=== PATIENT | male | born 1985 | race Caucasian/White ===

== ENCOUNTER 2017-07-31 22:30 | Inpatient (IN) | payer BC ==
[2017-08-01] MEDS ORDERED: Metoclopramide IV* 5 MG/ML 2 ML VIAL IV ONE ×2 (00:12→01:00)
[2017-08-01] MEDS ORDERED: NS 0.9% 1000 ML* 1,000 ML IV ONE (00:12)
[2017-08-01 00:49] LABS: ABS Basophils 0 10^3/ul (0-0.2); ABS Eosinophils 0 10^3/ul (0-0.6); ABS Lymphocytes 0.8 10^3/ul (1.0-4.8); ABS Monocytes 0.9 10^3/ul (0-0.8); ABS Neutrophils 7.9 10^3/ul (1.5-7.7); ABS Nucleated RBC 0 10^3/ul; Eosinophil % 0.1 % (0-6); Hematocrit 45 % (42-52); Hemoglobin 15.6 g/dl (14.0-18.0); Lymphocyte % 7.9 % (25-47); Mean Corpuscular HGB Conc 35 g/dl (31-36); Mean Corpuscular Hemoglobin 28 pg (27-31); Mean Corpuscular Volume 80 fL (80-94); Mean Platelet Volume 8 um3 (7.4-10.4); Nucleated Red Blood Cells % 0.1; Platelet Count 185 10^3/ul (150-450); Red Blood Count 5.59 10^6/ul (4.0-5.4); Red Cell Distribution Width 15 % (10.5-15); White Blood Count 9.6 10^3/ul (3.5-10.8)
[2017-08-01] MEDS: HYDROmorphone INJ* 2 MG/ML CARPUJECT SYRINGE IV SLOW PU PRN ×2 (00:52→04:16)
[2017-08-01 01:01] LABS: EGFR Non-African American 107.4 (>60)
[2017-08-01] MEDS ORDERED: Iohexol 300* (CONTRAST) 10 ML SDV IV ONE (01:35)
[2017-08-01] MEDS ORDERED: Ondansetron INJ* 2 MG/ML VIAL IV PRN (03:29)
[2017-08-01] MEDS ORDERED: Acetaminophen SUPP* 650 MG SUPP PR PRN (03:29)
[2017-08-01] MEDS ORDERED: HYDROmorphone INJ* 2 MG/ML CARPUJECT SYRINGE IV PRN (03:29)
--- NOTE | 2017-08-01 03:54 | ED ---
Jonathan Erickson Nikita, scribed Ida Romero MD on 08/01/17 at 0013 . Abdominal Pain/Male - HPI Summary HPI Summary: This patient is a 31 year old M presenting to ED with a chief complaint of abdominal pain since 2 days ago. The CC is described as aching. The patient rates the pain 7/10 in severity. Symptoms aggravated by nothing. Symptoms alleviated by nothing. Patient reports N/V. Patient denies fever and diarrhea. - History of Current Complaint Chief Complaint: EDAbdPain Stated Complaint: VOMITING Time Seen by Provider: 08/01/17 00:00 Hx Obtained From: Patient Onset/Duration: Sudden Onset, Lasting Days, Still Present Timing: Constant, Lasting Days Severity Initially: Moderate Severity Currently: Moderate Pain Intensity: 8 Pain Scale Used: 0-10 Numeric Radiates: No Character: Other: - aching Aggravating Factor(s): Nothing Alleviating Factor(s): Nothing Associated Signs And Symptoms: Positive: Other - Patient reports N/V. Patient denies fever and diarrhea. - Allergies/Home Medications Allergies/Adverse Reactions: Allergies Allergy/AdvReac Type Severity Reaction Status Date / Time Penicillins Allergy Intermediate Hives Verified 07/31/17 22:42 PMH/Surg Hx/FS Hx/Imm Hx Endocrine/Hematology History: Denies: Hx Diabetes, Hx Thyroid Disease Cardiovascular History: Denies: Hx Hypertension Respiratory History: Denies: Hx Asthma, Hx Chronic Obstructive Pulmonary Disease (COPD) GI History: Denies: Hx Ulcer Infectious Disease History: No Infectious Disease History: Denies: Hx Hepatitis, Hx Human Immunodeficiency Virus (HIV), Traveled Outside the [place] in Last 30 Days - Family History Known Family History: Positive: Diabetes Family History: R & n/C - Social History Alcohol Use: Weekly Hx Substance Use: No Substance Use Type: Reports: None Hx Tobacco Use: No Smoking Status (MU): Never Smoked Tobacco Review of Systems Negative: Fever Positive: Abdominal Pain, Vomiting, Nausea. Negative: Diarrhea All Other Systems Reviewed And Are Negative: Yes Physical Exam - Summary Physical Exam Summary: VITAL SIGNS: Reviewed. GENERAL: ~Patient is a well-developed and nourished MALE who is lying comfortable in the stretcher. Patient is not in any acute respiratory distress. HEAD AND FACE: No signs of trauma. No ecchymosis, hematomas or skull depressions. No sinus tenderness. EYES: PERRLA, EOMI x 2, No injected conjunctiva, no nystagmus. EARS: Hearing grossly intact. Ear canals and tympanic membranes are within normal limits. MOUTH: Oropharynx within normal limits. NECK: Supple, trachea is midline, no adenopathy, no JVD, no carotid bruit, no c- spine tenderness, neck with full ROM. CHEST: Symmetric, no tenderness at palpation LUNGS: Clear to auscultation bilaterally. No wheezing or crackles. CVS: Regular rate and rhythm, S1 and S2 present, no murmurs or gallops appreciated. ABDOMEN: Soft, LUQ tenderness. No signs of distention. No rebound no guarding, and no masses palpated. Hypoactive bowel sounds. EXTREMITIES: FROM in all major joints, no edema, no cyanosis or clubbing. NEURO: Alert and oriented x 3. No acute neurological deficits. Speech is normal and follows commands. SKIN: Dry and warm Triage Information Reviewed: Yes Vital Signs On Initial Exam: Initial Vitals Temp Pulse Resp BP Pulse Ox 98.2 F 81 18 149/83 98 07/31/17 22:39 07/31/17 22:39 07/31/17 22:39 07/31/17 22:39 07/31/17 22:39 Vital Signs Reviewed: Yes - [place] Coma Scale Coma Scale Total: 15 Diagnostics - Vital Signs Vital Signs Temp Pulse Resp BP Pulse Ox 08/01/17 00:08 82 97 08/01/17 00:05 155/80 07/31/17 22:39 98.2 F 81 18 149/83 98 - Laboratory Result Diagrams: 08/01/17 00:38 08/01/17 00:38 Lab Statement: Any lab studies that have been ordered have been reviewed, and results considered in the medical decision making process. - CT abd/pel CT Interpretation Completed By: Radiologist - Moderately dilated small bowel left upper and left lower quadrants with decompressed distal small bowel, probably partial or early small bowel obstruction. No colitis or free air. Normal appendix. Unremarkable pancreas, kidneys and gallbladder. Hepatosplenomegaly. Small ascites. ED physician has reviewed this radiology report. Abdominal Pain Fem Course/Dx - Course Assessment/Plan: This patient is a 31 year old M presenting to ED with a chief complaint of abdominal pain since [address] abd/pel reveals moderately dilated small bowel left upper and left lower quadrants with decompressed distal small bowel, probably partial or early small bowel obstruction. No colitis or free air. Normal appendix. Unremarkable pancreas, kidneys and gallbladder. Hepatosplenomegaly. Small ascites. Discussed about pt with Dr. Perez at 0326 who accepts pt for admission. Pt will be admitted. Pt is agreeable with this plan. - Diagnoses Differential Diagnosis/HQI/PQRI: Other - small bowel obstruction Provider Diagnoses: Small bowel obstruction - Provider Notifications Discussed Care Of Patient With: Chadd Perez Time Discussed With Above Provider: 03:26 Instructed by Provider To: Other - Discussed about pt with Dr. Perez who accepts pt for admission. Discharge - Discharge Plan Condition: Stable Disposition: ADMITTED TO [facility] The documentation as recorded by the Jonathan de la rosa Nikita accurately reflects the service I personally performed and the decisions made by , Ida Patino MD.
[2017-08-01] MEDS ORDERED: HYDROmorphone INJ* 1 MG/ML CARPUJECT SYRINGE ONE (04:12)
[2017-08-01] MEDS ORDERED: PROCHLORPERAZINE INJ 5 MG/ML 2 ML VIAL ONE (04:13)
[2017-08-01] MEDS ORDERED: PROCHLORPERAZINE INJ 5 MG/ML 2 ML VIAL IV ONE (04:15)
[2017-08-01 04:49] LABS: ABS Basophils 0 10^3/ul (0-0.2); ABS Eosinophils 0 10^3/ul (0-0.6); ABS Lymphocytes 0.9 10^3/ul (1.0-4.8); ABS Neutrophils 7.2 10^3/ul (1.5-7.7); ABS Nucleated RBC 0 10^3/ul; Eosinophil % 0 % (0-6); Hematocrit 44 % (42-52); Hemoglobin 15.2 g/dl (14.0-18.0); Lymphocyte % 10.2 % (25-47); Mean Corpuscular HGB Conc 35 g/dl (31-36); Mean Corpuscular Hemoglobin 28 pg (27-31); Mean Corpuscular Volume 80 fL (80-94); Mean Platelet Volume 8 um3 (7.4-10.4); Nucleated Red Blood Cells % 0.1; Platelet Count 179 10^3/ul (150-450); Red Blood Count 5.43 10^6/ul (4.0-5.4); Red Cell Distribution Width 15 % (10.5-15); White Blood Count 9.1 10^3/ul (3.5-10.8)
[2017-08-01 04:59] LABS: EGFR Non-African American 113.7 (>60)
[2017-08-01] MEDS: NS 0.9% 1000 ML* 1,000 ML IV SCH ×2 (05:31→21:20)
--- NOTE | 2017-08-01 05:41 | HP ---
H&P (Free Text) History and Physical: PCP: Darlene Franco MD Date/Time: 08/01/2017 0320 CC: abdominal pain HPI: Mr Goyal is a 31YO male healthy male who relates onset of malaise last Saturday night. Generalized abdominal pain began Saturday gradually increasing to include N/V Saturday. As he was not improving, he decided to present tonight for evaluation. He has had subjective F/C, but no chest pain, SOB, sweats, black /bloody content to emesis, or other issues. Last normal bowel movement was Saturday with some diarrhea on Saturday, no black or bloody content. CT abd/pel reveals partial SBO. PMedHx denies Ambulatory Orders NK [No Home Medications Reported] 12/23/12 Allergies Penicillins Allergy (Intermediate, Verified 07/31/17 22:42) Hives PSurgHx denies SocHx: no tobacco, occasional alcohol, no recreational drugs; lives with his ; works as a ground equipment mechanic for [employer]; full code status FamHx: Mother: DM; Father: AFIB ROS: as above, otherwise reviewed and all were negative vitals: Vital Signs Temp 36.8 C 08/01/17 05:13 Pulse 81 08/01/17 05:13 Resp 16 08/01/17 05:13 BP 131/70 08/01/17 05:13 Pulse Ox 91 08/01/17 05:13 Intake & Output 07/31/17 07/31/17 08/01/17 11:59 23:59 11:59 Intake Total 1000 Balance 1000 Weight 113.398 kg 113.398 kg Intake: IV Fluids 1000 Constitutional: NAD, normally developed, obese, ill-appearing white male HEENM: atraumatic; sclera/conjunctiva: anicteric/clear; hearing: clinically intact; nasal: NG in place to LIS; oropharynx: clear, mucosa tacky Neck: soft tissue: non-tender; thyroid: normal Pulmonary: clear to auscultation bilaterally, good aeration, no accessory muscle use CV: RR/RR, normal S1S2, no carotid bruit, no jugular venous distention, 2+ B DP/ PT, no edema Abdominal: soft, mildly distended, mild diffuse tenderness without rebound/ guarding/rigidity, normoactive bowel sounds, no hepatosplenomegaly or masses, no costovertebral angle tenderness Musculoskeletal: general: grossly intact; gait: stable Integumental: normal appearance and texture of exposed skin Psychiatric orientation: AA&O to PPS affect: calm mood: cooperative eye contact: fair to poor content: reliable responses: timely insight: good Testing: Lab Results 08/01/17 08/01/17 08/01/17 Range/Units 00:38 00:38 00:38 WBC 9.6 (3.5-10.8) 10^3/ul RBC 5.59 H (4.0-5.4) 10^6/ul Hgb 15.6 (14.0-18.0) g/dl Hct 45 (42-52) % MCV 80 (80-94) fL MCH 28 (27-31) pg MCHC 35 (31-36) g/dl RDW 15 (10.5-15) % Plt Count 185 (150-450) 10^3/ul MPV 8 (7.4-10.4) um3 Neut % (Auto) 82.1 (38-83) % Lymph % (Auto) 7.9 L (25-47) % Cuming % (Auto) 9.7 H (1-9) % Eos % (Auto) 0.1 (0-6) % Baso % (Auto) 0.2 (0-2) % Absolute Neuts (auto) 7.9 H (1.5-7.7) 10^3/ul Absolute Lymphs (auto) 0.8 L (1.0-4.8) 10^3/ul Absolute Monos (auto) 0.9 H (0-0.8) 10^3/ul Absolute Eos (auto) 0 (0-0.6) 10^3/ul Absolute Basos (auto) 0 (0-0.2) 10^3/ul Absolute Nucleated RBC 0 10^3/ul Nucleated RBC % 0.1 APTT 32.9 (26.0-36.3) seconds Sodium 135 (133-145) mmol/L Potassium 3.4 L (3.5-5.0) mmol/L Chloride 101 (101-111) mmol/L Carbon Dioxide 24 (22-32) mmol/L Anion Gap 10 (2-11) mmol/L BUN 17 (6-24) mg/dL Creatinine 0.83 (0.67-1.17) mg/dL Est GFR ( Amer) 138.1 (>60) Est GFR (Non-Af Amer) 107.4 (>60) BUN/Creatinine Ratio 20.5 H (8-20) Glucose 127 H (70-100) mg/dL Lactic Acid (0.5-2.0) mmol/L Calcium 9.6 (8.6-10.3) mg/dL Total Bilirubin 2.30 H (0.2-1.0) mg/dL AST 14 (13-39) U/L ALT 17 (7-52) U/L Alkaline Phosphatase 86 (34-104) U/L C-Reactive Protein 85.03 H (< 5.00) mg/L Total Protein 7.7 (6.4-8.9) g/dL Albumin 4.5 (3.2-5.2) g/dL Globulin 3.2 (2-4) g/dL Albumin/Globulin Ratio 1.4 (1-3) Amylase 29 (29-103) U/L Lipase 12 (11.0-82.0) U/L 08/01/17 08/01/17 08/01/17 Range/Units 04:33 04:33 04:33 WBC 9.1 (3.5-10.8) 10^3/ul RBC 5.43 H (4.0-5.4) 10^6/ul Hgb 15.2 (14.0-18.0) g/dl Hct 44 (42-52) % MCV 80 (80-94) fL MCH 28 (27-31) pg MCHC 35 (31-36) g/dl RDW 15 (10.5-15) % Plt Count 179 (150-450) 10^3/ul MPV 8 (7.4-10.4) um3 Neut % (Auto) 79.1 (38-83) % Lymph % (Auto) 10.2 L (25-47) % Cuming % (Auto) 10.5 H (1-9) % Eos % (Auto) 0 (0-6) % Baso % (Auto) 0.2 (0-2) % Absolute Neuts (auto) 7.2 (1.5-7.7) 10^3/ul Absolute Lymphs (auto) 0.9 L (1.0-4.8) 10^3/ul Absolute Monos (auto) 1.0 H (0-0.8) 10^3/ul Absolute Eos (auto) 0 (0-0.6) 10^3/ul Absolute Basos (auto) 0 (0-0.2) 10^3/ul Absolute Nucleated RBC 0 10^3/ul Nucleated RBC % 0.1 APTT (26.0-36.3) seconds Sodium 134 (133-145) mmol/L Potassium 3.4 L (3.5-5.0) mmol/L Chloride 100 L (101-111) mmol/L Carbon Dioxide 24 (22-32) mmol/L Anion Gap 10 (2-11) mmol/L BUN 16 (6-24) mg/dL Creatinine 0.79 (0.67-1.17) mg/dL Est GFR ( Amer) 146.2 (>60) Est GFR (Non-Af Amer) 113.7 (>60) BUN/Creatinine Ratio 20.3 H (8-20) Glucose 135 H (70-100) mg/dL Lactic Acid 0.6 (0.5-2.0) mmol/L Calcium 9.1 (8.6-10.3) mg/dL Total Bilirubin (0.2-1.0) mg/dL AST (13-39) U/L ALT (7-52) U/L Alkaline Phosphatase (34-104) U/L C-Reactive Protein (< 5.00) mg/L Total Protein (6.4-8.9) g/dL Albumin (3.2-5.2) g/dL Globulin (2-4) g/dL Albumin/Globulin Ratio (1-3) Amylase (29-103) U/L Lipase (11.0-82.0) U/L CT abd/pel, personally reviewed: report: Moderately dilated small bowel left upper and left lower quadrants with decompressed distal small bowel, probably partial or early small bowel obstruction. No colitis or free air. Normal appendix. Unremarkable pancreas, kidneys, and gallbladder. Hepatosplenomegaly. Small ascites. Impression: 31M w/o abdominal surgery HX presents with pSBO DIAGNOSIS & PLAN Primary pSBO : NG to LIS : strict I&Os : pain control : NPO : IVFs : consider surgical consult in AM : supportive care Admission Rational: inpatient for SBO not expected to adequately resolve w/i 48h to allow for discharge DVTp: MARCE Code Status: full HCP:
--- NOTE | 2017-08-01 07:54 | RAD ---
CLINICAL HISTORY: Abdominal pain COMPARISON: None TECHNIQUE: Multiple contiguous axial CT scans were obtained of the abdomen and pelvis after the administration of intravenous contrast. Coronal and sagittal multiplanar reformations are submitted for review. Oral contrast was administered. Delayed images were obtained through the abdomen and pelvis. FINDINGS: LUNG BASES: The lung bases are clear. LIVER: The liver is homogeneously enlarged measuring 20 cm in long axis. BILE DUCTS: There is no intrahepatic or extrahepatic biliary dilatation. GALLBLADDER: The gallbladder is normal, without pericholecystic inflammatory change. PANCREAS: The pancreas is normal, without mass or ductal dilatation. SPLEEN: The spleen is enlarged measuring 15 cm in long axis. UPPER GI TRACT: Evaluation of the gastrointestinal tract is limited by incomplete gastric distention. The upper GI tract is unremarkable. SMALL BOWEL AND MESENTERY: There is diffuse distention and mild dilatation of the small bowel proximally. There is transition to decompressed small bowel in the right lower abdomen at the level of the ileum. COLON: The colon is normal in contour, course, caliber. There is no pericolonic inflammatory change. ADRENALS: Normal bilaterally. KIDNEYS: The kidneys are normal in shape, size, contour, and axis. There is no hydronephrosis or nephrolithiasis. BLADDER: The bladder is smooth in contour. PELVIC ORGANS: The prostate gland is normal. The seminal vesicles are symmetric. AORTA: The aorta is normal. IVC: Unremarkable LYMPH NODES: There is no lymphadenopathy by size criteria. ABDOMINAL WALL: There is no evidence for abdominal wall hernia. BONES AND SOFT TISSUES: Unremarkable OTHER: There is trace free fluid within the pelvis. IMPRESSION: 1. DISTENTION AND MILD DILATATION OF THE SMALL BOWEL WITH DECOMPRESSED LOOPS DISTALLY SUGGESTIVE OF EARLY OR PARTIAL SMALL BOWEL OBSTRUCTION. 2. HEPATOSPLENOMEGALY. 3. TRACE PELVIC ASCITES.
[2017-08-01] MEDS: Pantoprazole IV* 40 MG IV SCH (08:48)
[2017-08-01 11:09] LABS: Urine Appearance Clear; Urine Blood Negative (Negative); Urine Color Yellow; Urine Ketones 1+ (Negative); Urine Protein Negative (Negative); Urine Specific Gravity > 1.060 (1.010-1.030); Urine Urobilinogen Negative (Negative)
--- NOTE | 2017-08-01 19:48 | PN ---
Subjective Date of Service: 08/01/17 Interval History: Seen with at bedside No abdominal pain Discomfort from NG tube, Requesting removal +flatus Objective Active Medications: Acetaminophen (Tylenol Supp*) 650 mg MS Q6H PRN PRN Reason: FEVER/PAIN Hydromorphone HCl (Dilaudid Inj*) 0.5 mg IV Q2H PRN PRN Reason: PAIN Sodium Chloride (Ns 0.9% 1000 Ml*) 1,000 mls @ 125 mls/hr IV PER RATE [facility] Last Admin: 08/01/17 05:31 Dose: 125 mls/hr Ondansetron HCl (Zofran Inj*) 4 mg IV Q6H PRN PRN Reason: NAUSEA Pantoprazole Sodium (Protonix Iv*) 40 mg IV DAILY [facility] Last Admin: 08/01/17 08:48 Dose: 40 mg Vital Signs - 8 hr 08/01/17 15:51 Temperature 97.5 F Pulse Rate 83 Respiratory 18 Rate Blood Pressure 135/68 (mmHg) O2 Sat by Pulse 97 Oximetry Oxygen Devices in Use Now: None Appearance: NAD Eyes: No Scleral Icterus, PERRLA Ears/Nose/Mouth/Throat: Clear Oropharnyx, Mucous Membranes Moist Neck: NL Appearance and Movements; NL JVP, Trachea Midline Respiratory: Symmetrical Chest Expansion and Respiratory Effort, Clear to Auscultation Cardiovascular: NL Sounds; No Murmurs; No JVD, RRR Result Diagrams: 08/01/17 04:33 08/01/17 04:33 Assess/Plan/Problems-Billing Assessment: 31 yo M p/w pSBO - Patient Problems (1) Partial small bowel obstruction Comment: NG tube out supportive therapy IVF NPO (2) DVT prophylaxis Comment: ambulate
[2017-08-02] MEDS: NS 0.9% 1000 ML* 1,000 ML IV SCH ×2 (05:03→12:50)
[2017-08-02] MEDS: Pantoprazole IV* 40 MG IV SCH (09:05)
--- NOTE | 2017-08-02 15:47 | PN ---
Subjective Date of Service: 08/02/17 Interval History: +flatus, no pain no BMs Advanced to liquids and tolerating well during the day frequent ambulation around unit Objective Active Medications: Acetaminophen (Tylenol Supp*) 650 mg [place] Q6H PRN PRN Reason: FEVER/PAIN Hydromorphone HCl (Dilaudid Inj*) 0.5 mg IV Q2H PRN PRN Reason: PAIN Sodium Chloride (Ns 0.9% 1000 Ml*) 1,000 mls @ 125 mls/hr IV PER RATE [facility] Last Admin: 08/02/17 12:50 Dose: 125 mls/hr Ondansetron HCl (Zofran Inj*) 4 mg IV Q6H PRN PRN Reason: NAUSEA Pantoprazole Sodium (Protonix Iv*) 40 mg IV DAILY [facility] Last Admin: 08/02/17 09:05 Dose: 40 mg Vital Signs - 8 hr 08/02/17 08/02/17 08/02/17 08:00 09:58 11:05 Temperature 97.5 F Pulse Rate 59 Respiratory 16 18 Rate Blood Pressure 128/68 (mmHg) O2 Sat by Pulse 99 99 Oximetry Oxygen Devices in Use Now: None Appearance: NAD Eyes: No Scleral Icterus, PERRLA Ears/Nose/Mouth/Throat: NL Teeth, Lips, Gums, Clear Oropharnyx, Mucous Membranes Moist Neck: NL Appearance and Movements; NL JVP, Trachea Midline Respiratory: Symmetrical Chest Expansion and Respiratory Effort, Clear to Auscultation Cardiovascular: NL Sounds; No Murmurs; No JVD, RRR Abdominal: NL Sounds; No Tenderness; No Distention, No Hepatosplenomegaly Lymphatic: No Cervical Adenopathy Skin: No Rash or Ulcers Neurological: Alert and Oriented x 3 Result Diagrams: 08/01/17 04:33 08/01/17 04:33 Assess/Plan/Problems-Billing Assessment: 31 yo M p/w pSBO - Patient Problems (1) Partial small bowel obstruction Comment: NG tube out supportive therapy Clear liquids. If continues to tolerate and/or +BM can advance diet (2) DVT prophylaxis Comment: ambulate Status and Disposition: suspect home tomorrow with continued resolution of psbo
[2017-08-03] MEDS: Pantoprazole IV* 40 MG IV SCH (08:20)
[2017-08-03 08:24] VITALS: BP 145/74
--- NOTE | 2017-08-03 08:50 | PN ---
Subjective Date of Service: 08/03/17 Interval History: Pt is feeling well this AM. No abdominal pain. He tolerated full liquids last night. He states he had a BM this AM. He is anxious to go home. Objective Active Medications: Acetaminophen (Tylenol Supp*) 650 mg SC Q6H PRN PRN Reason: FEVER/PAIN Ondansetron HCl (Zofran Inj*) 4 mg IV Q6H PRN PRN Reason: NAUSEA Pantoprazole Sodium (Protonix Iv*) 40 mg IV DAILY [facility] Last Admin: 08/03/17 08:20 Dose: 40 mg Vital Signs - 8 hr 08/03/17 08/03/17 08/03/17 02:20 08:00 08:02 Temperature 97.5 F 98.0 F Pulse Rate 60 66 Respiratory 16 16 16 Rate Blood Pressure 143/70 145/74 (mmHg) O2 Sat by Pulse 98 100 Oximetry Oxygen Devices in Use Now: None Appearance: Young male sitting up in a chair, NAD Eyes: No Scleral Icterus Ears/Nose/Mouth/Throat: Mucous Membranes Moist Respiratory: Symmetrical Chest Expansion and Respiratory Effort, Clear to Auscultation Cardiovascular: NL Sounds; No Murmurs; No JVD, RRR, No Edema Abdominal: NL Sounds; No Tenderness; No Distention Extremities: No Clubbing, Cyanosis Skin: No Rash or Ulcers, No Nodules or Sclerosis Neurological: Alert and Oriented x 3 Result Diagrams: 08/01/17 04:33 08/01/17 04:33 Assess/Plan/Problems-Billing Mr Goyal is a 31 yo M who has no significant PMHx who presented to the ER with c /o abdominal pain and was found to have a partial SBO. - Patient Problems (1) Partial small bowel obstruction Current Visit: Yes Status: Acute Code(s): K56.600 - PARTIAL INTESTINAL OBSTRUCTION, UNSPECIFIED TO CAUSE SNOMED Code(s): 489498285 Comment: Resolved. Pt tolerated full liquids last night. Will d/c home this AM. He has been recommended to monitor for recurrent symptoms. He will continue to slowly advance his diet at home. (2) DVT prophylaxis Current Visit: Yes Status: Acute Code(s): PSU6316 - SNOMED Code(s): 428679452 Comment: ambulation (3) Full code status Current Visit: Yes Status: Acute Code(s): Z78.9 - OTHER SPECIFIED HEALTH STATUS SNOMED Code(s): 463120552 Status and Disposition: d/c home
--- NOTE | 2017-08-03 19:44 | DS ---
CC: Dr. Franco * DISCHARGE SUMMARY: DATE OF ADMISSION: 08/01/17 DATE OF DISCHARGE: 08/03/17 PRIMARY CARE PROVIDER: Dr. Franco. PRINCIPAL DIAGNOSIS: Partial small bowel obstruction. HOSPITAL COURSE: Mr. Goyal is a 31-year-old male who has no significant past medical history who presented to the emergency room on 08/01/17 with complaints of generalized abdominal pain that began the Saturday prior to admission. He additionally had nausea and vomiting the Saturday prior to admission. The patient underwent a CT scan in the emergency room which revealed a partial small bowel obstruction. The patient has no past surgical history, making the etiology of the partial small bowel obstruction unknown. The patient did respond to conservative therapy with NG tube decompression. NG tube was removed later on the day of admission. The patient had his diet slowly advanced from clear liquids to full liquids. The patient tolerated the full liquids well the night prior to discharge. On the morning of discharge, the patient did have a bowel movement. He states he is feeling very well and would like to go home. We did discuss advancing his diet slowly from full liquids to regular consistency once he is home. He will continue to monitor for recurrent symptoms and re-present to the emergency room if he has any. FOLLOWUP CONCERNS: The patient is being discharged to home today, 08/03/17. Activity level is as tolerated. Diet is full liquids, advancing to regular as tolerated. CONDITION ON DISCHARGE: Stable. The patient is to follow up with Dr. Salmeron in the next 4 to 7 days. TIME SPENT: Twenty minutes was spent discharging this patient. [id number]/[facility] #: [id number] [facility]
== END 2017-08-03 09:10 | disposition home or self-care (01) | DRG 247 ==
LOC: ED 22:30 → SSU 08-01 03:26 → MED 08-01 10:48
PROVIDERS: ADMIT Hospitalist; ATTEND Hospitalist
PROC: 0D9670Z Drainage of Stomach with Drainage Device, Via Natural or Artificial Opening (ICD-10-PCS; principal; 2017-08-01)
DX: K56.600 Partial intestinal obstruction, unspecified as to cause (principal); E66.9 Obesity, unspecified; Z88.0 Allergy status to penicillin; Z83.3 Family history of diabetes mellitus; Z82.49 Family history of ischemic heart disease and other diseases of the circulatory system; Z68.35 Body mass index [BMI] 35.0-35.9, adult
CPT/HCPCS: 36415; 74177; 80048; 80053; 81003; 82150; 83605; 83690; 85025; 85730; 86140; J0780; J1170; J2765; Q9967